=== PATIENT | female | born 2000 | race Caucasian/White ===

== ENCOUNTER → 2023-09-15 | Outpatient (CLI) | payer OTHER | LOC: M WHC 07:22 | PROVIDERS: ATTEND Obstetrics & Gynecology | DX: N97.9 Female infertility, unspecified (principal); E66.9 Obesity, unspecified; E28.2 Polycystic ovarian syndrome ==

== ENCOUNTER 2023-09-26 15:31 | Outpatient (CLI) | payer OTHER ==
[~2023-09-26] VITALS: Ht 162.6 cm; Wt 105.0 kg
[~2023-09-26 15:31] MED LIST: ALBUTEROL SULFATE 2.5MG/0.5ML INH NEB SOLN INH PRN; EPINEPHrine INJ 1 MG/ML 1ML AMP IM PRN; diphenhydrAMINE 50MG/ML VIAL IV PRN; methylPREDNISolone 125MG 2ML VIAL IV PRN
[2023-09-26 15:45] VITALS: BP 127/61; O2SAT 93
[2023-09-26] MEDS ORDERED: NS 1,000 ML IV SCH (15:50)
[2023-09-26] MEDS ORDERED: diphenhydrAMINE 25MG CAP PO ONE (15:50)
[2023-09-26] MEDS ORDERED: FERRIC CARBOXYMALTOSE INJ 750 MG in NS 250 ML (>50kg) IV ONE ×3 (15:50)
[2023-09-26] MEDS ORDERED: ACETAMINOPHEN TAB 650MG DOSE (2X325MG) PO ONE (15:50)
[2023-09-26] MEDS ORDERED: VITA100T59 PO (16:00)
[2023-09-26] MEDS ORDERED: B-12100010 PO (16:00)
[2023-09-26] MEDS ORDERED: IRON65TA2 PO (16:00)
[2023-09-26] MEDS ORDERED: THERTAB52 PO (16:00)
[2023-09-26] MEDS ORDERED: LEVO25TA5 PO (16:00)
[2023-09-26] MEDS ORDERED: VITAD400CA PO (16:02)
[2023-09-26] MEDS ORDERED: PROBCAP14 PO (16:02)
[2023-09-26] MEDS ORDERED: ADV100INH INH (16:04)
[2023-09-26] MEDS ORDERED: ALBU6.7H6 INH (16:04)
[2023-09-26 17:40] VITALS: BP 114/75; O2SAT 97
== END 2023-09-26 17:40 ==
LOC: M INFU 15:31
PROVIDERS: ATTEND Family Medicine
DX: D50.9 Iron deficiency anemia, unspecified (principal)
CPT/HCPCS: 96365; J1439

== ENCOUNTER 2023-10-03 15:35 | Outpatient (CLI) | payer OTHER ==
[~2023-10-03] VITALS: Ht 162.6 cm; Wt 104.5 kg
[~2023-10-03 15:35] MED LIST changes: +ACETAMINOPHEN TAB 650MG DOSE (2X325MG) PO ONE; +ADV100INH INH; +ALBU6.7H6 INH; +B-12100010 PO; +FERRIC CARBOXYMALTOSE INJ 750 MG in NS 250 ML (>50kg) IV ONE; +IRON65TA2 PO; +LEVO25TA5 PO; +NS 1,000 ML IV SCH; +PROBCAP14 PO; +THERTAB52 PO; +VITA100T59 PO; +VITAD400CA PO; +diphenhydrAMINE 25MG CAP PO ONE
[2023-10-03 15:50] VITALS: BP 112/67; O2SAT 96
[2023-10-03 17:42] VITALS: BP 124/76; O2SAT 97
== END 2023-10-03 17:45 | disposition home or self-care (01) ==
LOC: M INFU 15:35
PROVIDERS: ATTEND Family Medicine
DX: D50.9 Iron deficiency anemia, unspecified (principal)
CPT/HCPCS: 96365; J1439

== ENCOUNTER → 2024-03-25 | Outpatient (CLI) | payer OTHER ==
[~2024-03-25] MED LIST changes: -ACETAMINOPHEN TAB 650MG DOSE (2X325MG) PO ONE; -ALBUTEROL SULFATE 2.5MG/0.5ML INH NEB SOLN INH PRN; -EPINEPHrine INJ 1 MG/ML 1ML AMP IM PRN; -FERRIC CARBOXYMALTOSE INJ 750 MG in NS 250 ML (>50kg) IV ONE; +ISOVUE-370 76% 100ML VIAL ONE; -NS 1,000 ML IV SCH; -diphenhydrAMINE 25MG CAP PO ONE; -diphenhydrAMINE 50MG/ML VIAL IV PRN; -methylPREDNISolone 125MG 2ML VIAL IV PRN
== END ==
LOC: M PLAIMG 13:50
PROVIDERS: ATTEND Family Medicine
DX: R22.1 Localized swelling, mass and lump, neck (principal)
CPT/HCPCS: 70491; Q9967

== ENCOUNTER 2024-04-11 10:45 | Emergency (ER) | payer OTHER ==
[~2024-04-11] VITALS: Ht 162.6 cm; Wt 113.1 kg
[~2024-04-11 10:45] MED LIST changes: -ISOVUE-370 76% 100ML VIAL ONE
[2024-04-11] MEDS ORDERED: MULTTAB20 PO (11:01)
[2024-04-11 11:31] LABS: APPEARANCE, URINE HAZY (CLEAR); BACTERIA, URINE AUTO 1+ (NEGATIVE); BILIRUBIN, URINE AUTO NEGATIVE (NEGATIVE); BLOOD, URINE BLOOD 2+ (NEGATIVE); COLOR, URINE YELLOW (YELLOW); GLUCOSE, URINE (UA) AUTO NEGATIVE (NEGATIVE); KETONE, URINE AUTO NEGATIVE (NEGATIVE); LEUKOCYTE ESTERASE, URINE AUTO NEGATIVE (NEGATIVE); NITRITE, URINE AUTO NEGATIVE (NEGATIVE); PROTEIN, URINE AUTO NEGATIVE (NEGATIVE); RBC, URINE AUTO 32 /HPF (0-3); SPECIFIC GRAVITY URINE AUTO 1.008 (1.002-1.035); SQUAMOUS EPITHELIAL CELL UR AU 2 /HPF (0-6); UROBILINOGEN, URINE AUTO 0.2 mg/dL (0.0-2.0); WBC, URINE AUTO 1 /HPF (0-3)
[2024-04-11 11:31] LABS: BASO % 0.5 % (0.0-1.0); EOS # 0.2 10^3/uL (0.0-0.5); EOS % 2.1 % (0.0-3.0); HEMOGLOBIN 12.5 g/dl (12.0-15.5); LYMPH # 1.6 10^3/uL (1.5-5.0); LYMPH % 21.1 % (24.0-44.0); MEAN CORPUSCULAR HEMOGLOBIN 27.4 pg (27.0-33.0); MEAN CORPUSCULAR HGB CONC 32.9 g/dl (32.0-36.5); MEAN CORPUSCULAR VOLUME 83.3 fl (80.0-96.0); MONO # 0.5 10^3/uL (0.0-0.8); MONO % 6.7 % (2.0-8.0); NEUTROPHILS # 5.2 10^3/uL (1.5-8.5); NEUTROPHILS % 69.2 % (36.0-66.0); PLATELET COUNT, AUTOMATED 282 10^3/uL (150-450); RED BLOOD COUNT 4.56 10^6/uL (4.00-5.40); WHITE BLOOD COUNT 7.5 10^3/uL (4.0-10.0)
[2024-04-11 12:02] LABS: BLOOD UREA NITROGEN 9 MG/DL (9-23); CALCIUM LEVEL 9.3 MG/DL (8.5-10.1); CARBON DIOXIDE LEVEL 26 MMOL/L (20-31); CHLORIDE LEVEL 106 MMOL/L (98-107); CREATININE FOR GFR 0.69 MG/DL (0.55-1.30); GLOMERULAR FILTRATION RATE > 60.0 (>60); GLUCOSE, FASTING 97 MG/DL (60-100); POTASSIUM SERUM 4.4 MMOL/L (3.5-5.1); SODIUM LEVEL 138 MMOL/L (136-145)
[2024-04-11 14:30] VITALS: BP 114/73; TEMP 98.1; O2SAT 96
== END 2024-04-11 14:56 | disposition home or self-care (01) ==
LOC: M ED 10:45
DX: O26.851 Spotting complicating pregnancy, first trimester (principal); J45.909 Unspecified asthma, uncomplicated; E03.9 Hypothyroidism, unspecified; K58.9 Irritable bowel syndrome, unspecified; Z3A.01 Less than 8 weeks gestation of pregnancy; Z79.52 Long term (current) use of systemic steroids; Z79.899 Other long term (current) drug therapy; Z88.8 Allergy status to other drugs, medicaments and biological substances

== ENCOUNTER 2024-06-05 08:14 | Emergency (ER) | payer OTHER ==
[~2024-06-05] VITALS: Ht 162.6 cm; Wt 109.1 kg
[~2024-06-05 08:14] MED LIST changes: +MULTTAB20 PO
[2024-06-05 10:19] LABS: BASO % 0.1 % (0.0-1.0); EOS # 0.1 10^3/uL (0.0-0.5); EOS % 0.6 % (0.0-3.0); HEMATOCRIT 35.7 % (36.0-47.0); HEMOGLOBIN 11.8 g/dl (12.0-15.5); LYMPH # 1.3 10^3/uL (1.5-5.0); LYMPH % 16.4 % (24.0-44.0); MEAN CORPUSCULAR HGB CONC 33.1 g/dl (32.0-36.5); MEAN CORPUSCULAR VOLUME 84.6 fl (80.0-96.0); MONO # 0.4 10^3/uL (0.0-0.8); MONO % 4.6 % (2.0-8.0); NEUTROPHILS # 6.1 10^3/uL (1.5-8.5); PLATELET COUNT, AUTOMATED 237 10^3/uL (150-450); RED BLOOD COUNT 4.22 10^6/uL (4.00-5.40); WHITE BLOOD COUNT 7.9 10^3/uL (4.0-10.0)
[2024-06-05 10:30] LABS: INR 1.09; PROTHROMBIN TIME 13.8 SECONDS (12.5-14.5)
[2024-06-05 10:48] LABS: LIPASE 38 U/L (12-53)
[2024-06-05 10:50] LABS: CPK CREATINE PHOSPHOKINASE 33 U/L (34-145)
[2024-06-05 10:51] LABS: ALBUMIN 3.8 G/DL (3.2-5.2); ALKALINE PHOSPHATASE 46 U/L (46-116); ALT/SGPT 15 U/L (7.0-40); AST/SGOT < 8 U/L (<34); BILIRUBIN,DIRECT 0.1 MG/DL (<0.4); BILIRUBIN,TOTAL 0.4 MG/DL (0.3-1.2); BLOOD UREA NITROGEN 6 MG/DL (9-23); CALCIUM LEVEL 9.2 MG/DL (8.5-10.1); CARBON DIOXIDE LEVEL 22 MMOL/L (20-31); CHLORIDE LEVEL 106 MMOL/L (98-107); CK-MB VALUE MASS < 1.0 NG/ML (<3.6); CREATININE FOR GFR 0.54 MG/DL (0.55-1.30); GLOMERULAR FILTRATION RATE > 60.0 (>60); GLUCOSE, FASTING 85 MG/DL (60-100); MB/CK RELATIVE INDEX 3.03 (< OR =4); POTASSIUM SERUM 4.5 MMOL/L (3.5-5.1); SODIUM LEVEL 135 MMOL/L (136-145); TOTAL PROTEIN 7.2 G/DL (5.7-8.2)
[2024-06-05] MEDS ORDERED: METF-817 PO (11:22)
[2024-06-05] MEDS ORDERED: ASPI81CH33 PO (11:24)
[2024-06-05] MEDS: LIDOCAINE 1% MDV 20ML VIAL SC ONE (11:35)
[2024-06-05] MEDS: ACETAMINOPHEN TAB 650MG DOSE (2X325MG) PO ONE (11:51)
[2024-06-05 12:34] VITALS: BP 113/68; TEMP 98.5; O2SAT 98
== END 2024-06-05 12:35 | disposition home or self-care (01) ==
LOC: M ED 08:14
DX: O26.892 Other specified pregnancy related conditions, second trimester (principal); M62.838 Other muscle spasm; M25.512 Pain in left shoulder; J45.909 Unspecified asthma, uncomplicated; E03.9 Hypothyroidism, unspecified; K58.9 Irritable bowel syndrome, unspecified; Z88.8 Allergy status to other drugs, medicaments and biological substances; Z79.52 Long term (current) use of systemic steroids; Z79.899 Other long term (current) drug therapy; Z3A.14 14 weeks gestation of pregnancy